=== PATIENT | female | born 1980 | race Caucasian/White ===

== ENCOUNTER → 2022-07-19 | Outpatient (CLI) | payer MEDICARE, OTHER ==
--- NOTE | 2022-07-19 14:53 | US ---
EXAMINATION TYPE: US abdomen complete DATE OF EXAM: 07/19/2022 COMPARISON: NONE CLINICAL HISTORY: 42-year-old female E78.1 Pure hyperglyceridemia; R12. Heartburn. Intermittent nause a and vomiting. Mid epigastric pain. TECHNIQUE: Multiple sonographic images of the abdomen are obtained. FINDINGS: EXAM MEASUREMENTS: Liver Length: 16.1 cm Gallbladder Wall: 0.30 cm CBD: 0.4 cm Spleen: 9.9 cm Right Kidney: 10.1 x 4.0 x 4.7 cm Left Kidney: 10.1 x 5.2 x 3.5 cm WINTERIZER NOTES: Best images obtained due to patients inability to follow breathing instructions. Pancreas: Only the pancreatic body is seen. Head and tail obscured by bowel gas shadowing. Liver: wnl Gallbladder: wnl Evidence for sonographic Coles's sign: No CBD: wnl Spleen: wnl Right Kidney: wnl Left Kidney: wnl Upper IVC: wnl Abd Aorta: wnl IMPRESSION: Patient had limited ability to follow breathing instructions. There is limited visualization of the p ancreas. Otherwise, no discrete sonographic abnormality is seen of the abdomen.
== END | disposition home or self-care (01) ==
LOC: RADUSWWP 08:50
PROVIDERS: ATTEND Family Medicine
DX: R10.13 Epigastric pain (principal); E78.1 Pure hyperglyceridemia
CPT/HCPCS: 76700

== ENCOUNTER → 2023-04-25 | Outpatient (CLI) | payer MEDICARE, OTHER ==
--- NOTE | 2023-04-25 10:27 | US ---
EXAMINATION TYPE: US abdomen complete DATE OF EXAM: 04/25/2023 COMPARISON: NONE CLINICAL INDICATION: Female, 43 years old with history of R10.13 EPIGASTRIC PAIN; morning vomiting x 3 months, previously would occur at night after eating too quickly. Pt. has ASD TECHNIQUE: Multiple sonographic images of the abdomen are obtained. FINDINGS: EXAM MEASUREMENTS: Liver Length: 17.8 cm Gallbladder Wall: 0.2 cm CBD: 0.4 cm Spleen: 8.3 cm Right Kidney: 10.8x4.2x5.2 cm Left Kidney: 10.9x5.4x4.6 cm FAMILY DEVELOPMENT EXTENSION SPECIALIST NOTES: Pancreas: Tail obscured by overlying bowel gas Liver: enlarged Gallbladder: wnl Evidence for sonographic Coles's sign: No CBD: wnl Spleen: wnl Right Kidney: No hydronephrosis or masses seen Left Kidney: No hydronephrosis or masses seen Upper IVC: wnl Abd Aorta: wnl Pt. has Autism Spectrum Disorder and is unable to follow instruction for deep withheld inspiration The liver is homogenous. The intrahepatic portion of the IVC and proximal abdominal aorta are within normal limits. There is no evidence of cholelithiasis. Common bile duct is unremarkable. The visu alized portions of the pancreas are homogenous. The spleen is unremarkable. Kidneys are symmetric a nd free of hydronephrosis. No renal lesions are seen. IMPRESSION: The liver appears enlarged.
--- NOTE | 2023-04-25 10:34 | US ---
EXAMINATION TYPE: US thyroid st tissue head/neck DATE OF EXAM: 04/25/2023 COMPARISON: NONE CLINICAL INDICATION: Female, 43 years old with history of R22.1 SUBMENTAL MASS,; neck fullness and s ubmental mass GLAND SIZE: Right Lobe: 4.4x1.6x1.5 cm Overall Parenchyma: homogenous Left Lobe: 3.9x1.3x1.5 cm Overall Parenchyma: homogeneous Isthmus Thickness: 0.3 cm NODULES RIGHT: # of nodules measured on right: 0 LEFT: # of nodules measured on left: 0 ISTHMUS: # of nodules measured in the isthmus: 0 Bilateral neck scanned, no evidence of lymphadenopathy. Submental area of concern scanned. Small 0.6x0.9x0.3cm lymph node with fatty hilum and hilar flow not ed IMPRESSION: Normal appearing thyroid glands. Submental lymph node as noted above.
== END | disposition home or self-care (01) ==
LOC: RADUSWWP 08:52
PROVIDERS: ATTEND Family Medicine
DX: R59.9 Enlarged lymph nodes, unspecified (principal); R16.0 Hepatomegaly, not elsewhere classified
CPT/HCPCS: 76536; 76700

== ENCOUNTER → 2024-07-07 | Outpatient (CLI) | payer MEDICARE, OTHER ==
--- NOTE | 2024-07-14 11:57 | MM ---
Reason for Exam: Screening (asymptomatic). Baseline mammogram. Patient History: Menarche at age 16. Patient has no children. Premenopausal. Currently using Hormonal Contraceptives, starting at age 20. Last menstrual period: 07/01/2024 Risk Values: Cori 5 year model risk: 0.7%. NCI Lifetime model risk: 10.0%. Prior Study Comparison: Patient's first Mammogram. Tissue Density: The breasts are heterogeneously dense, which may obscure small masses. Findings: Analyzed By CAD. Right breast: There is no suspicious group of microcalcifications or new suspicious mass. Left breast: There is no suspicious group of microcalcifications or new suspicious mass. Overall Assessment: Negative, BI-RAD 1 Management: Screening Mammogram of both breasts in [address] [facility] will attempt to contact patient to return for supplemental views and ultrasound if indicated. Patient should continue monthly self-breast exams. A clinical breast exam by your physician is recommended on an annual basis. This exam should not preclude additional follow-up of suspicious palpable abnormalities. Note on Cori scores and lifetime risk: 1. A Cori score greater than 3% is considered moderate risk. If this is the case, consider specialist referral to assess eligibility for a risk reducing agent. 2. If overall lifetime risk for the development of breast cancer is 20% or higher, the patient may qualify for future screening with alternating mammogram and breast MRI. Electronically signed and approved by: William Oviedo DO
== END | disposition home or self-care (01) ==
LOC: RADMAMWWP 13:49
PROVIDERS: ATTEND Family Medicine
DX: Z12.31 Encounter for screening mammogram for malignant neoplasm of breast
CPT/HCPCS: 77063; 77067